=== PATIENT | male | born 1980 | race Caucasian/White ===

== ENCOUNTER 2016-10-03 11:58 | Inpatient (IN) | payer OTHER ==
[2016-10-03 12:15] VITALS: BMI 27.0
--- NOTE | 2016-10-03 13:38 | HP ---
COWS - Scale Resting Pulse: 0= ID 80 or Below Sweatin=Flushed/Facial Moisture Restless Observation: 1= Difficult to Sit Still Pupil Size: 0= Normal to Room Light Bone or Joint Aches: 2= Severe Diffuse Aches Runny Nose/ Eye Tearin= Runny Nose/Eyes GI Upset > 30mins: 2= Nausea/Diarrhea Tremor Observation: 2= Slight Tremor Visible Yawning Observation: 2= >3x During Session Anxiety or Irritability: 2=Irritable/Anxious Goose Flesh Skin: 3=Piloerection COWS Score: 18 CIWA Score - CIWA Score Nausea/Vomitin-Mild Nausea/No Vomiting Muscle Tremors: 4-Moderate,w/Arms Extend Anxiety: 3 Agitation: 4-Moderately Restless Paroxysmal Sweats: 3 Orientation: 0-Oriented Tacttile Disturbances: 0-None Auditory Disturbances: 0-None Visual Disturbances: 0-None Headache: 2-Mild CIWA-Ar Total Score: 17 Admission ROS BHS - HPI Chief Complaint: I am here to get detox from all my drugs. Allergies/Adverse Reactions: Allergies Allergy/AdvReac Type Severity Reaction Status Date / Time No Known Allergies Allergy Verified 10/03/16 12:39 History of Present Illness: pt is a 36yr old male with a history heroin, cocaine, and alcohol dependence seeking detox for treatment. Last detox was 4yrs ago at [facility]. This is his first detox at our facility. Exam Limitations: Language Barrier (Serbian speaking, understand very little ecuadorean) - Ebola screening Have you traveled outside of the country in the last 21 days: No Have you had contact with anyone from an Ebola affected area: No Have you been sick,other than usual withdrawal symptoms: No Do you have a fever: No - Review of Systems Constitutional: Chills, Diaphoresis, Loss of Appetite, Night Sweats, Changes in sleep EENT: reports: Tearing, Nose Congestion Respiratory: reports: No Symptoms reported Cardiac: reports: No Symptoms Reported GI: reports: Diarrhea, Nausea, Poor Appetite, Poor Fluid Intake, Indigestion : reports: No Symptoms Reported Musculoskeletal: reports: Back Pain, Joint Pain, Muscle Pain Integumentary: reports: Flushing, Sweating Neuro: reports: Headache, Tingling, Tremors Endocrine: reports: Excessive Sweating, Flushing, Intolerance to Cold, Intolerance to Heat Hematology: reports: No Symptoms Reported Psychiatric: reports: Judgement Intact, Mood/Affect Appropiate, Orientated x3, Agitated, Anxious Other Systems: Reviewed and Negative Patient History - Patient Medical History Hx Anemia: No Hx Asthma: No Hx Chronic Obstructive Pulmonary Disease (COPD): No Hx Cancer: No Hx Cardiac Disorders: No Hx Congestive Heart Failure: No Hx Hypertension: No Hx Hypercholesterolemia: No Hx Pacemaker: No HX Cerebrovascular Accident: No Hx Seizures: No Hx Dementia: No Hx Diabetes: No Hx Gastrointestinal Disorders: No Hx Liver Disease: No Hx Genitourinary Disorders: No Hx Sexually Transmitted Disorders: No Hx Renal Disease (ESRD): No Hx Thyroid Disease: No Hx Human Immunodeficiency Virus (HIV): No (negative) Hx Hepatitis C: No (negative) Hx Depression: Yes Hx Suicide Attempt: No (denies) Hx Bipolar Disorder: No Hx Schizophrenia: No Other Medical History: insomnia - Patient Surgical History Past Surgical History: No Hx Neurologic Surgery: No Hx Cataract Extraction: No Hx Cardiac Surgery: No Hx Lung Surgery: No Hx Breast Surgery: No Hx Breast Biopsy: No Hx Abdominal Surgery: No Hx Appendectomy: No Hx Cholecystectomy: No Hx Genitourinary Surgery: No Hx Section: No Hx Orthopedic Surgery: No Anesthesia Reaction: No - PPD History Previous Implant?: Yes Documented Results: Negative w/o proof Implanted On Prior R Admission?: No PPD to be Administered?: Yes - Reproductive History Patient is a Female of Child Bearing Age (11 -55 yrs old): No - Smoking Cessation Smoking history: Current every day smoker Have you smoked in the past 12 months: Yes Aproximately how many cigarettes per day: 20 Hx Chewing Tobacco Use: No Initiated information on smoking cessation: Yes 'Breaking Loose' booklet given: 10/03/16 - Substance & Tx. History Hx Alcohol Use: Yes Hx Substance Use: Yes Substance Use Type: Alcohol, Cocaine, Heroin, Marijuana Hx Substance Use Treatment: Yes (Last detox Bx. [place] 4yrs ago) - Substances Abused Heroin Route: Injection Frequency: Daily Amount used: 20 bags Age of first use: 23 Date of Last Use: 10/03/16 Cocaine Route: Injection Frequency: Daily Amount used: $100 Age of first use: 23 Date of Last Use: 10/03/16 Alcohol-beer/vodka Route: Oral Frequency: Daily Amount used: 2-3 6 pks./1 pt. Age of first use: 12 Date of Last Use: 10/02/16 Family Disease History - Family Disease History Family History: Denies Admission Physical Exam [facility] - Vital Signs Vital Signs: Vital Signs - 24 hr 10/03/16 12:12 Temperature 96.4 F L Pulse Rate 77 Respiratory 20 Rate Blood Pressure 117/73 - Physical General Appearance: Yes: Appropriately Dressed, Moderate Distress, Tremorous, Irritable, Sweating, Anxious HEENTM: Yes: Hearing grossly Normal, Normal Voice Respiratory: Yes: Lungs Clear, Normal Breath Sounds, No Respiratory Distress Neck: Yes: No masses,lesions,Nodules Breast: Yes: Within Normal Limits Cardiology: Yes: Regular Rhythm, Regular Rate, S1, S2 Abdominal: Yes: Normal Bowel Sounds, Non Tender, Soft Genitourinary: Yes: Within Normal Limits Back: Yes: Normal Inspection Musculoskeletal: Yes: full range of Motion, Back pain Extremities: Yes: Normal Capillary Refill, Normal Inspection, Non-Tender, Tremors Neurological: Yes: Fully Oriented, Alert, Normal Response Integumentary: Yes: Normal Color, Diaphoresis, Track Pratt Lymphatic: Yes: Within Normal Limits - Diagnostic (1) Alcohol dependence with uncomplicated withdrawal Current Visit: Yes Status: Chronic (2) Opioid dependence with withdrawal Current Visit: Yes Status: Chronic (3) Cocaine dependence Current Visit: Yes Status: Chronic Qualifiers: Substance use status: uncomplicated Qualified Code(s): F14.20 - Cocaine dependence, uncomplicated (4) Nicotine dependence Current Visit: Yes Status: Chronic Qualifiers: Nicotine product type: cigarettes Substance use status: uncomplicated Qualified Code(s): F17.210 - Nicotine dependence, cigarettes, uncomplicated Cleared for Admission [facility] - Detox or Rehab [facility] Level of Care: Medically Managed Detox Regimen/Protocol: Methadone/Librium [facility] Breath Alcohol Content Breath Alcohol Content: 0 Urine Drug Screen - Results Drug Screen Negative: No Urine Drug Screen Results: MILEY-Cocaine, OPI-Opiates, MTD-Methadone
[2016-10-03] MEDS ORDERED: guaiFENesin/D-METHORPHAN HB 10 ML UNIT-DOSE CUPS PO PRN (13:45)
[2016-10-03] MEDS ORDERED: P-EPHED 60MG/TRIPROLIDI 2.5MG TABLET PO PRN (13:45)
[2016-10-03] MEDS ORDERED: LOPERAMIDE HCL 2 MG CAPSULE PO PRN (13:45)
[2016-10-03] MEDS ORDERED: ACETAMINOPHEN 325 MG TABLET (FP) PO PRN (13:45)
[2016-10-03] MEDS ORDERED: MENTHOL/PHENOL 1 EACH UD MM PRN (13:45)
[2016-10-03] MEDS ORDERED: chlordiazePOXIDE HCL 25 MG CAPSULE PO PRN (13:45)
[2016-10-03] MEDS ORDERED: NICOTINE POLACRILEX 4 MG GUM BUC PRN (13:45)
[2016-10-03] MEDS ORDERED: MAGNESIUM HYDROX 2400MG/30ML ORAL SUSPENSION 30 ML CUP PO PRN (13:45)
[2016-10-03] MEDS ORDERED: MAGNESIUM CITRATE 300 ML BOTTLE PO PRN (13:45)
[2016-10-03] MEDS ORDERED: chlordiazePOXIDE HCL 25 MG CAPSULE PO ONE (14:24)
[2016-10-03] MEDS ORDERED: METHADONE HCL 10 MG TABLET (FOR DETOX USE ONLY) PO ONE ×2 (14:25→23:00)
[2016-10-03 16:40] LABS: URINE APPEARANCE CLEAR; URINE BILIRUBIN NEGATIVE (NEGATIVE); URINE BLOOD NEGATIVE (NEGATIVE); URINE COLOR YELLOW; URINE GLUCOSE (UA) NEGATIVE (NEGATIVE); URINE KETONE NEGATIVE (NEGATIVE); URINE LEUK ESTERASE NEGATIVE (NEGATIVE); URINE NITRITE NEGATIVE (NEGATIVE); URINE PROTEIN NEGATIVE (NEGATIVE); URINE UROBILINOGEN NEGATIVE mg/dL (0.2-1.0)
[2016-10-03] MEDS ORDERED: METHADONE HCL 10 MG TABLET (FOR DETOX USE ONLY) ONE (16:46)
[2016-10-03] MEDS: chlordiazePOXIDE HCL 25 MG CAPSULE PO SCH ×2 (16:52→22:20)
[2016-10-03 17:12] LABS: MCH 27.4 pg (25.7-33.7); MCHC 32.6 g/dl (32.0-35.9); MEAN CELL VOLUME 84.1 fl (80-96); MEAN PLT VOLUME 9.3 fl (7.5-11.1); PLATELET COUNT 265 K/MM3 (134-434); RDW 14.4 % (11.9-15.9); WHITE BLOOD COUNT 5.2 K/mm3 (4.0-10.0)
[2016-10-03 17:37] LABS: ALBUMIN 4.1 g/dl (3.4-5.0); ANION GAP 6 (8-16); BILIRUBIN,TOTAL 0.4 mg/dL (0.2-1.0); CALCIUM 9.2 mg/dL (8.5-10.1); CO2 30 mmol/L (21-32); CREATININE 0.7 mg/dL (0.7-1.3); GLUCOSE,RANDOM 122 mg/dL (74-106); SGOT/AST 25 U/L (15-37); SGPT/ALT 39 U/L (12-78); TOT PROT 7.5 g/dl (6.4-8.2)
[2016-10-03 17:38] LABS: ALK PHOS 123 U/L (45-117)
[2016-10-03 21:05] LABS: HIV 1 & 2 AB NEGATIVE; HIV 1 AGp24 NEGATIVE
[2016-10-03] MEDS: THIAMINE HCL 100 MG TABLET (FP) PO SCH (22:20)
[2016-10-03] MEDS: diphenhydrAMINE HCL 50 MG CAPSULE PO PRN (22:20)
[2016-10-03] MEDS: cloNIDine HCL 0.1 MG TABLET PO SCH (22:20)
[2016-10-04] MEDS: chlordiazePOXIDE HCL 25 MG CAPSULE PO SCH ×4 (05:12→22:46)
--- NOTE | 2016-10-04 09:15 | CONSULT ---
[facility] Psychiatric Consult - Data Date of interview: 10/04/16 Admission source: [facility] Identifying data: This is 36 years old bahamian speaking male with no psychiatric hospitalization history intoxicated with: Alcohol, Opioids, Cocaine , Nicotine. Substance Abuse History: Smoking history: Current every day smoker. Have you smoked in the past 12 months: Yes. Aproximately how many cigarettes per day: 20. Hx Chewing Tobacco Use: No. Initiated information on smoking cessation: Yes. 'Breaking Loose' booklet given: 10/03/16. - Substance & Tx. History. Hx Alcohol Use: Yes. Hx Substance Use: Yes. Substance Use Type: Alcohol, Cocaine , Heroin, Marijuana. Hx Substance Use Treatment: Yes (Last detox Bx. [place] 4yrs ago). - Substances Abused. Heroin. Route: Injection. Frequency: Daily. Amount used: 20 bags. Age of first use: 23. Date of Last Use: . Cocaine. Route: Injection. Frequency: Daily. Amount used: $100. Age of first use: 23. Date of Last Use: 10/03/16. Alcohol-beer/vodka. Route: Oral. Frequency: Daily. Amount used: 2-3 6 pks./1 pt. Age of first use: 12. Date of Last Use: 10/02/16 Medical History: Denies any significant medical issues Psychiatric History: Paiotent reports history of anhiety and insomnia,m reprots good response on Seroquel 100mg po qhs Physical/Sexual Abuse/Trauma History: Denies Additional Comment: Seroquel 100mg po qhs Mental Status Exam - Mental Status Exam Alert and Oriented to: Person Cognitive Function: Fair Patient Appearance: Well Groomed Mood: Apprehensive Affect: Mood Congruent Patient Behavior: Cooperative Speech Pattern: Appropriate Voice Loudness: Normal Thought Process: Goal Oriented Thought Disorder: Being Controlled Hallucinations: Denies Suicidal Ideation: Denies Homicidal Ideation: Denies Insight/Judgement: Fair Sleep: Difficulty falling asleep Appetite: Fair Muscle strength/Tone: Normal Gait/Station: Normal Additional Comments: Seroquel 100mg po qhs Psychiatric Findings - Problem List ([place] 1, 2,3) (1) Alcohol dependence with uncomplicated withdrawal Current Visit: Yes Status: Chronic (2) Cocaine dependence Current Visit: Yes Status: Chronic Qualifiers: Substance use status: uncomplicated Qualified Code(s): F14.20 - Cocaine dependence, uncomplicated (3) Nicotine dependence Current Visit: Yes Status: Chronic Qualifiers: Nicotine product type: cigarettes Substance use status: uncomplicated Qualified Code(s): F17.210 - Nicotine dependence, cigarettes, uncomplicated (4) Opioid dependence with withdrawal Current Visit: Yes Status: Chronic (5) Drug-induced mood disorder Current Visit: Yes Status: Acute (6) Alcohol-induced sleep disorder Current Visit: Yes Status: Acute - Initial Treatment Plan Initial Treatment Plan: Seroquel 100mg po qhs
[2016-10-04] MEDS ORDERED: METHADONE HCL 10 MG TABLET (FOR DETOX USE ONLY) PO SCH (10:00)
[2016-10-04] MEDS: PRENATAL VITAMINS W/ FOLIC ACID TABLET (FP) PO SCH (10:11)
[2016-10-04] MEDS: NICOTINE 21 MG/24 HOURS TOPICAL PATCH TD SCH (10:11)
[2016-10-04] MEDS: cloNIDine HCL 0.1 MG TABLET PO SCH ×2 (10:11→22:46)
--- NOTE | 2016-10-04 10:13 | PN ---
[facility] CIWA - CIWA Score Nausea/Vomitin-No Nausea/No Vomiting Muscle Tremors: 4-Moderate,w/Arms Extend Anxiety: 3 Agitation: 4-Moderately Restless Paroxysmal Sweats: 3 Orientation: 0-Oriented Tacttile Disturbances: 0-None Auditory Disturbances: 0-None Visual Disturbances: 0-None Headache: 2-Mild CIWA-Ar Total Score: 16 [facility] COWS - Scale Resting Pulse: 0= MD 80 or Below Sweatin=Flushed/Facial Moisture Restless Observation: 1= Difficult to Sit Still Pupil Size: 0= Normal to Room Light Bone or Joint Aches: 2= Severe Diffuse Aches Runny Nose/ Eye Tearin= Runny Nose/Eyes GI Upset > 30mins: 1= Stomach Cramp Tremor Observation of Outstretched Hands: 2= Slight Tremor Visible Yawning Observation: 1= 1-2x During Session Anxiety or Irritability: 2=Irritable/Anxious Goose Flesh Skin: 3=Piloerection COWS Score: 16 [facility] Progress Note (SOAP) Subjective: agitation anxiety sweats shakes goosebumps interrupted sleep Objective: 10/04/16 10:09 Vital Signs Temperature 97.8 F 10/04/16 10:00 Pulse Rate 70 10/04/16 10:00 Respiratory Rate 18 10/04/16 06:29 Blood Pressure 109/70 10/04/16 06:29 O2 Sat by Pulse Oximetry (%) Laboratory Tests 10/03/16 10/03/16 10/03/16 14:00 14:00 14:00 WBC 5.2 RBC 4.82 Hgb 13.2 Hct 40.6 MCV 84.1 MCH 27.4 MCHC 32.6 RDW 14.4 Plt Count 265 MPV 9.3 Sodium 140 Potassium 4.5 Chloride 104 Carbon Dioxide 30 Anion Gap 6 L BUN 11 Creatinine 0.7 Creat Clearance w eGFR > 60 Random Glucose 122 H Calcium 9.2 Total Bilirubin 0.4 AST 25 ALT 39 Alkaline Phosphatase 123 H Total Protein 7.5 Albumin 4.1 Urine Color Urine Appearance Urine pH Ur Specific [place] Urine Protein Urine Glucose (UA) Urine Ketones Urine Blood Urine Nitrite Urine Bilirubin Urine Urobilinogen Ur Leukocyte Esterase HIV 1&2 Antibody Screen Negative HIV P24 Antigen Negative 10/03/16 15:00 WBC RBC Hgb Hct MCV MCH MCHC RDW Plt Count MPV Sodium Potassium Chloride Carbon Dioxide Anion Gap BUN Creatinine Creat Clearance w eGFR Random Glucose Calcium Total Bilirubin AST ALT Alkaline Phosphatase Total Protein Albumin Urine Color Yellow Urine Appearance Clear Urine pH 5.0 Ur Specific [place] >= 1.030 H Urine Protein Negative Urine Glucose (UA) Negative Urine Ketones Negative Urine Blood Negative Urine Nitrite Negative Urine Bilirubin Negative Urine Urobilinogen Negative Ur Leukocyte Esterase Negative HIV 1&2 Antibody Screen HIV P24 Antigen awake/alert ambulating no acute distress Assessment: 10/04/16 10:12 withdrawal sx Plan: continue detox increase fluids
[2016-10-04] MEDS: hydrOXYzine PAMOATE 50 MG CAPSULE (FP) PO PRN ×2 (11:55→17:13)
--- NOTE | 2016-10-04 12:59 | EKG ---
Test Reason : Blood Pressure : / mmHG Vent. Rate : 066 BPM Atrial Rate : 066 BPM P-R Int : 196 ms QRS Dur : 090 ms QT Int : 392 ms P-R-T Axes : 064 075 050 degrees QTc Int : 410 ms NORMAL SINUS RHYTHM NORMAL ECG NO PREVIOUS ECGS AVAILABLE Confirmed by AMELIA WADE, FAUSTINA ([id number]) on 10/04/2016 12:59:01 PM Referred By: Robel Burkett Confirmed By:FAUSTINA CISNEROS MD
[2016-10-04] MEDS: IBUPROFEN 400 MG TABLET (FP) PO PRN (14:29)
[2016-10-04] MEDS ORDERED: QUEtiapine FUMARATE 100 MG TABLET (FP) PO SCH (22:00)
[2016-10-04] MEDS: THIAMINE HCL 100 MG TABLET (FP) PO SCH (22:46)
[2016-10-05] MEDS: diphenhydrAMINE HCL 50 MG CAPSULE PO PRN (01:37)
[2016-10-05] MEDS: chlordiazePOXIDE HCL 25 MG CAPSULE PO SCH ×2 (05:07→11:01)
--- NOTE | 2016-10-05 09:32 | PN ---
Psychiatric Progress Note Vital Signs: Vital Signs Period Temp Pulse Resp BP Sys/Adan Pulse Ox Last 24 Hr 97.7 F-98.6 F 56-72 16-18 104-117/50-73 Date of Session: 10/05/16 Chief Complaint:: Insomnia HPI: Patient reports insomnia, asking change Seroquel for Elavil Current Medications: Active Medications Generic Name Dose Route Start Last Admin Trade Name Freq PRN Reason Stop Dose Admin Acetaminophen 650 mg 10/03/16 13:45 10/03/16 16:52 Tylenol - PO 650 mg Q4H PRN Administration FEVER OR PAIN Al Hydroxide/Mg Hydroxide 30 ml 10/03/16 13:45 Mylanta Oral Suspension - PO Q6H PRN DYSPEPSIA Amitriptyline HCl 100 mg 10/05/16 22:00 Elavil - PO HS ALEXEY Chlordiazepoxide HCl 10 mg 10/06/16 17:00 Librium - PO 10/07/16 11:01 [id number] ALEXEY Chlordiazepoxide HCl 25 mg 10/03/16 13:45 10/04/16 14:29 Librium - PO 10/06/16 13:45 25 mg Q4H PRN Administration WITHDRAWAL(CONT SUBST) Chlordiazepoxide HCl 25 mg 10/04/16 17:00 10/05/16 05:07 Librium - PO 10/05/16 11:01 25 mg [id number] ALEXEY Administration Chlordiazepoxide HCl 15 mg 10/05/16 17:00 Librium - PO 10/06/16 11:01 [id number] ALEXEY Clonidine 0.1 mg 10/03/16 22:00 10/04/16 22:46 Catapres - PO 0.1 mg BID ALEXEY Administration Diphenhydramine HCl 50 mg 10/03/16 13:45 10/05/16 01:37 Benadryl - PO 50 mg HSMR1 PRN Administration INSOMNIA Eucalyptus/Menthol/Phenol/Sorbitol 1 each 10/03/16 13:45 Cepastat Lozenge - MM Q4H PRN SORE THROAT Guaifenesin 10 ml 10/03/16 13:45 Robitussin Dm - PO Q6H PRN COUGH Hydroxyzine Pamoate 50 mg 10/03/16 13:45 10/04/16 17:13 Vistaril - PO 50 mg Q4H PRN Administration AGITATION Ibuprofen 400 mg 10/03/16 13:45 10/04/16 14:29 Motrin - PO 400 mg Q6H PRN Administration SEVERE PAIN Loperamide HCl 4 mg 10/03/16 13:45 Imodium - PO Q6H PRN DIARRHEA Magnesium Citrate 300 ml 10/03/16 13:45 Citroma - PO Q48H PRN CONSTIPATION Magnesium Hydroxide 30 ml 10/03/16 13:45 Milk Of Magnesia - PO DAILY PRN CONSTIPATION Methadone HCl 10 mg 10/07/16 10:00 Dolophine - PO 10/07/16 10:01 DAILY ALEXEY Methadone HCl 15 mg 10/05/16 10:00 Dolophine - PO 10/06/16 10:01 DAILY ALEXEY Methadone HCl 5 mg 10/08/16 06:00 Dolophine - PO 10/08/16 06:01 DAILY@0600 ALEXEY Nicotine 21 mg 10/04/16 10:00 10/04/16 10:11 Nicoderm Patch - TD Not Given DAILY [facility] Nicotine Polacrilex 4 mg 10/03/16 13:45 10/04/16 10:12 Nicorette Gum - BUC 4 mg Q2H PRN Administration NICOTINE REPLACEMENT RX Multivit/Folic Acid/Iron 1 tab 10/04/16 10:00 10/04/16 10:11 Vitamins (Sjr) - PO 1 tab DAILY [facility] Administration Pseudoephedrine/Triprolidine 1 combo 10/03/16 13:45 Actifed - PO TID PRN NASAL CONGESTION Thiamine HCl 100 mg 10/03/16 22:00 10/04/16 22:46 Vitamin B1 - PO 100 mg HS ALEXEY Administration Medication(s) Change(s): D/C Seroquel. Start Elavil 100m,g po qhs Mental Status Exam - Mental Status Exam Alert and Oriented to: Person Cognitive Function: Fair Patient Appearance: Unkempt Mood: Anxious Affect: Mood Congruent Patient Behavior: Guarded Speech Pattern: Appropriate Voice Loudness: Normal Thought Process: Goal Oriented Thought Disorder: Being Controlled Hallucinations: Denies Suicidal Ideation: Denies Homicidal Ideation: Denies Insight/Judgement: Fair Appetite: Fair Muscle strength/Tone: Normal Gait/Station: Normal Additional Comments: Zoloft 100mg poqd. Seroquel 200mg po bid. Remeron 45mg po qhs Psychiatric Treatment Plan - Problem List (1) Alcohol dependence with uncomplicated withdrawal Current Visit: Yes (2) Cocaine dependence Current Visit: Yes Qualifiers: Substance use status: uncomplicated Qualified Code(s): F14.20 - Cocaine dependence, uncomplicated (3) Nicotine dependence Current Visit: Yes Qualifiers: Nicotine product type: cigarettes Substance use status: uncomplicated Qualified Code(s): F17.210 - Nicotine dependence, cigarettes, uncomplicated (4) Opioid dependence with withdrawal Current Visit: Yes (5) Drug-induced mood disorder Current Visit: Yes (6) Alcohol-induced sleep disorder Current Visit: Yes Initial treatment plan: Elavil 100mg po qhs
--- NOTE | 2016-10-05 10:41 | PN ---
S Progress Note Note: pt states he fell because slipped with his PJ's. Pt landed on his buttock and hit his right elbow. Pt denies hitting his head. will sent pt for x-ray of back and elbow. No bruising, no broken skin noted to body areas. encouraged motrin/tylenol prn will continue to monitor.
--- NOTE | 2016-10-05 10:43 | PN ---
[facility] CIWA - CIWA Score Nausea/Vomitin-No Nausea/No Vomiting Muscle Tremors: 4-Moderate,w/Arms Extend Anxiety: 3 Agitation: 4-Moderately Restless Paroxysmal Sweats: 3 Orientation: 0-Oriented Tacttile Disturbances: 0-None Auditory Disturbances: 0-None Visual Disturbances: 0-None Headache: 0-None Present CIWA-Ar Total Score: 14 [facility] COWS - Scale Resting Pulse: 0= [place] 80 or Below Sweatin=Flushed/Facial Moisture Restless Observation: 1= Difficult to Sit Still Pupil Size: 0= Normal to Room Light Bone or Joint Aches: 2= Severe Diffuse Aches Runny Nose/ Eye Tearin= Runny Nose/Eyes GI Upset > 30mins: 0= None Tremor Observation of Outstretched Hands: 2= Slight Tremor Visible Yawning Observation: 0= None Anxiety or Irritability: 2=Irritable/Anxious Goose Flesh Skin: 3=Piloerection COWS Score: 14 S Progress Note (SOAP) Subjective: irritable sweats agitation anxiety interrupted sleep Objective: 10/05/16 10:42 Vital Signs Temperature 97.7 F 10/05/16 09:31 Pulse Rate 80 10/05/16 09:31 Respiratory Rate 16 10/05/16 09:31 Blood Pressure 110/75 10/05/16 09:31 O2 Sat by Pulse Oximetry (%) Laboratory Tests 10/03/16 10/03/16 10/03/16 14:00 14:00 14:00 WBC RBC Hgb Hct MCV MCH MCHC RDW Plt Count MPV Sodium Potassium Chloride Carbon Dioxide Anion Gap BUN Creatinine Creat Clearance w eGFR Random Glucose Calcium Total Bilirubin AST ALT Alkaline Phosphatase Total Protein Albumin Urine Color Urine Appearance Urine pH Ur Specific [place] Urine Protein Urine Glucose (UA) Urine Ketones Urine Blood Urine Nitrite Urine Bilirubin Urine Urobilinogen Ur Leukocyte Esterase RPR Titer Nonreactive Hepatitis C Antibody >11.0 H HIV 1&2 Antibody Screen Negative HIV P24 Antigen Negative 10/03/16 10/03/16 10/03/16 14:00 14:00 15:00 WBC 5.2 RBC 4.82 Hgb 13.2 Hct 40.6 MCV 84.1 MCH 27.4 MCHC 32.6 RDW 14.4 Plt Count 265 MPV 9.3 Sodium 140 Potassium 4.5 Chloride 104 Carbon Dioxide 30 Anion Gap 6 L BUN 11 Creatinine 0.7 Creat Clearance w eGFR > 60 Random Glucose 122 H Calcium 9.2 Total Bilirubin 0.4 AST 25 ALT 39 Alkaline Phosphatase 123 H Total Protein 7.5 Albumin 4.1 Urine Color Yellow Urine Appearance Clear Urine pH 5.0 Ur Specific [place] >= 1.030 H Urine Protein Negative Urine Glucose (UA) Negative Urine Ketones Negative Urine Blood Negative Urine Nitrite Negative Urine Bilirubin Negative Urine Urobilinogen Negative Ur Leukocyte Esterase Negative RPR Titer Hepatitis C Antibody HIV 1&2 Antibody Screen HIV P24 Antigen awake/alert ambulating no acute distress Assessment: 10/05/16 10:43 withdrawal sx Plan: continue detox increase fluids
[2016-10-05] MEDS: NICOTINE 21 MG/24 HOURS TOPICAL PATCH TD SCH (11:00)
[2016-10-05] MEDS: cloNIDine HCL 0.1 MG TABLET PO SCH ×2 (11:00→22:39)
[2016-10-05] MEDS: METHADONE HCL 5 MG TABLET (FOR DETOX USE ONLY) PO SCH (11:00)
[2016-10-05] MEDS: PRENATAL VITAMINS W/ FOLIC ACID TABLET (FP) PO SCH (11:00)
[2016-10-05] MEDS ORDERED: CYCLOBENZAPRINE HCL 10 MG TABLET (FP) PO ONE (12:23)
[2016-10-05] MEDS: hydrOXYzine PAMOATE 50 MG CAPSULE (FP) PO PRN ×2 (12:26→17:17)
--- NOTE | 2016-10-05 12:28 | PN ---
[facility] Progress Note Note: discussed with pt about his Hep C + result >11.0 ; pt is in agreement to follow up with PMD for further tx after detox tx.
[2016-10-05] MEDS: IBUPROFEN 400 MG TABLET (FP) PO PRN (12:43)
[2016-10-05] MEDS: chlordiazePOXIDE 5 MG CAPSULE PO SCH ×2 (17:17→22:39)
[2016-10-05] MEDS: AMITRIPTYLINE HCL 100 MG TABLET PO SCH (22:39)
[2016-10-05] MEDS: CYCLOBENZAPRINE HCL 10 MG TABLET (FP) PO PRN (22:39)
[2016-10-05] MEDS: THIAMINE HCL 100 MG TABLET (FP) PO SCH (22:39)
[2016-10-06] MEDS: chlordiazePOXIDE 5 MG CAPSULE PO SCH ×2 (05:40→10:24)
[2016-10-06] MEDS: PRENATAL VITAMINS W/ FOLIC ACID TABLET (FP) PO SCH (10:23)
[2016-10-06] MEDS: NICOTINE 21 MG/24 HOURS TOPICAL PATCH TD SCH (10:23)
[2016-10-06] MEDS: cloNIDine HCL 0.1 MG TABLET PO SCH ×2 (10:24→22:06)
[2016-10-06] MEDS: METHADONE HCL 5 MG TABLET (FOR DETOX USE ONLY) PO SCH (10:24)
[2016-10-06] MEDS ORDERED: IBUPROFEN 600 MG TABLET (FP) PO PRN (12:04)
--- NOTE | 2016-10-06 12:04 | PN ---
[facility] Progress Note (SOAP) Subjective: muscle spasm sweats interrupted sleep Objective: 10/06/16 12:02 Vital Signs Temperature 97.5 F L 10/06/16 10:00 Pulse Rate 89 10/06/16 10:00 Respiratory Rate 18 10/06/16 10:00 Blood Pressure 110/72 10/06/16 10:00 O2 Sat by Pulse Oximetry (%) awake/alert ambulating no acute distress Assessment: 10/06/16 12:03 withdrawal sx Plan: continue detox increase fluids flexiril prn
[2016-10-06] MEDS: chlordiazePOXIDE HCL 10 MG CAPSULE PO SCH ×2 (17:28→22:06)
[2016-10-06] MEDS: CYCLOBENZAPRINE HCL 10 MG TABLET (FP) PO PRN ×2 (17:28→22:06)
[2016-10-06] MEDS: hydrOXYzine PAMOATE 50 MG CAPSULE (FP) PO PRN (17:28)
[2016-10-06] MEDS: AMITRIPTYLINE HCL 100 MG TABLET PO SCH (22:06)
[2016-10-06] MEDS: THIAMINE HCL 100 MG TABLET (FP) PO SCH (22:07)
[2016-10-07] MEDS: chlordiazePOXIDE HCL 10 MG CAPSULE PO SCH ×2 (06:15→10:28)
[2016-10-07] MEDS ORDERED: METHADONE HCL 10 MG TABLET (FOR DETOX USE ONLY) PO SCH (10:00)
[2016-10-07] MEDS: cloNIDine HCL 0.1 MG TABLET PO SCH ×2 (10:27→22:03)
[2016-10-07] MEDS: PRENATAL VITAMINS W/ FOLIC ACID TABLET (FP) PO SCH (10:28)
[2016-10-07] MEDS: NICOTINE 21 MG/24 HOURS TOPICAL PATCH TD SCH (10:29)
--- NOTE | 2016-10-07 13:13 | PN ---
S Progress Note (SOAP) Subjective: ALERT,IRRITABLE,,INTERRUPTED SLEEP Objective: 10/07/16 13:12 Vital Signs Temperature 97.2 F L 10/07/16 10:06 Pulse Rate 88 10/07/16 10:06 Respiratory Rate 18 10/07/16 10:06 Blood Pressure 104/68 10/07/16 10:06 O2 Sat by Pulse Oximetry (%) Assessment: 10/07/16 13:12 WITHDRAWAL SYMPTOM Plan: CONTINUE DETOX,DISCHARGE IN AM
[2016-10-07] MEDS: MAG HYDROX/AL HYDROX/SIMETH 30 ML UNIT-DOSE CUP PO PRN ×2 (14:37→20:42)
[2016-10-07] MEDS: CYCLOBENZAPRINE HCL 10 MG TABLET (FP) PO PRN (22:02)
[2016-10-07] MEDS: AMITRIPTYLINE HCL 100 MG TABLET PO SCH (22:02)
[2016-10-07] MEDS: hydrOXYzine PAMOATE 50 MG CAPSULE (FP) PO PRN (22:02)
[2016-10-07] MEDS: THIAMINE HCL 100 MG TABLET (FP) PO SCH (22:03)
[2016-10-08] MEDS ORDERED: METHADONE HCL 5 MG TABLET (FOR DETOX USE ONLY) PO SCH (06:00)
[2016-10-08 06:34] VITALS: BP 128/78; PULSE 63; TEMP 97.5
--- NOTE | 2016-10-08 08:33 | DS ---
[facility] Detox Discharge Summary Admission Date: 10/03/16 Discharge Date: 10/08/16 - History Present History: Alcohol Dependence, Cocaine Dependence, Opioid Dependence Additional Comments: FOLLOW UP WITH AFTER CARE PROGRAM ARRANGEMENT - Physical Exam Results Vital Signs: Vital Signs Temperature 97.5 F L 10/08/16 06:33 Pulse Rate 63 10/08/16 06:33 Respiratory Rate 16 10/08/16 06:33 Blood Pressure 128/78 10/08/16 06:33 O2 Sat by Pulse Oximetry (%) Pertinent Admission Physical Exam Findings: WITHDRAWAL SYMPTOM - Treatment Hospital Course: Detox Protocol Followed, Detoxed Safely, Responded well, Discharged Condition Good Patient has Accepted a Rehab Referral to: DECLINED - Medication Discharge Medications: Ambulatory Orders Quetiapine Fumarate [Seroquel] 100 mg PO HS #30 tablet 10/04/16 Amitriptyline HCl [Elavil -] 100 mg PO HS #30 tablet 10/05/16 - Diagnosis (1) Alcohol-induced sleep disorder Current Visit: Yes Status: Acute (2) Drug-induced mood disorder Current Visit: Yes Status: Acute (3) Alcohol dependence with uncomplicated withdrawal Current Visit: Yes Status: Chronic (4) Cocaine dependence Current Visit: Yes Status: Chronic Qualifiers: Substance use status: uncomplicated Qualified Code(s): F14.20 - Cocaine dependence, uncomplicated (5) Nicotine dependence Current Visit: Yes Status: Chronic Qualifiers: Nicotine product type: cigarettes Substance use status: uncomplicated Qualified Code(s): F17.210 - Nicotine dependence, cigarettes, uncomplicated (6) Opioid dependence with withdrawal Current Visit: Yes Status: Chronic - AMA Did Patient Leave Against Medical Advice: No
[2016-10-08] MEDS: PRENATAL VITAMINS W/ FOLIC ACID TABLET (FP) PO SCH (09:13)
[2016-10-08] MEDS: cloNIDine HCL 0.1 MG TABLET PO SCH (09:13)
[2016-10-08] MEDS: NICOTINE 21 MG/24 HOURS TOPICAL PATCH TD SCH (09:13)
[2016-10-08 14:11] LABS: HCV LOG 10 6.118 (.)
== END 2016-10-08 09:46 | disposition home or self-care (01) | DRG 773 ==
LOC: YASAS 11:58 → Y6N 14:20
PROVIDERS: ADMIT Internal Medicine; ATTEND Internal Medicine
PROC: HZ2ZZZZ Detoxification Services for Substance Abuse Treatment (ICD-10-PCS; principal; 2016-10-03)
DX: F11.23 Opioid dependence with withdrawal (principal); F10.230 Alcohol dependence with withdrawal, uncomplicated; F10.282 Alcohol dependence with alcohol-induced sleep disorder; F14.20 Cocaine dependence, uncomplicated; F17.210 Nicotine dependence, cigarettes, uncomplicated; F19.24 Other psychoactive substance dependence with psychoactive substance-induced mood disorder; Z91.81 History of falling; W01.0XXA Fall on same level from slipping, tripping and stumbling without subsequent striking against object, initial encounter; Y93.01 Activity, walking, marching and hiking; Y92.239 Unspecified place in hospital as the place of occurrence of the external cause
CPT/HCPCS: 36415; 72100-TC; 73070-TC-LT; 73070-TC-RT; 80053; 81003; 85027; 86593; 86803; 87389; 87522; 93005; 93010